=== PATIENT | female | born 1960 | race Caucasian/White ===

== ENCOUNTER 2019-08-17 05:27 | Emergency (ER) | payer MEDICAID ==
[~2019-08-17] VITALS: Ht 165.1 cm; Wt 54.5 kg
[2019-08-17] MEDS ORDERED: ipratropium/albuterol 3ml nebule NEB ONE (06:35)
[2019-08-17] MEDS ORDERED: azithromycin 250mg tablet PO ONE (06:35)
[2019-08-17] MEDS ORDERED: albuterol 2.5 MG/3 ML nebule NEB ONE (06:35)
[2019-08-17] MEDS ORDERED: predniSONE 20 mg tablet PO ONE (06:35)
[2019-08-17 06:47] VITALS: BP 107/71
[2019-08-17] MEDS ORDERED: AZIT250T PO (07:19)
[2019-08-17] MEDS ORDERED: PRED20TA PO (07:19)
[2019-08-17] MEDS ORDERED: ALBU18HF2 INH (07:19)
== END 2019-08-17 07:33 | disposition home or self-care (01) ==
LOC: ER 05:28
DX: J44.1 Chronic obstructive pulmonary disease with (acute) exacerbation (principal); B34.9 Viral infection, unspecified; F17.200 Nicotine dependence, unspecified, uncomplicated; F12.90 Cannabis use, unspecified, uncomplicated; Z88.0 Allergy status to penicillin; Z88.8 Allergy status to other drugs, medicaments and biological substances; Z88.5 Allergy status to narcotic agent
CPT/HCPCS: 71045; 94640; 99283; J7512; 94760

== ENCOUNTER 2019-08-19 07:46 | Emergency (ER) | payer MEDICAID ==
[~2019-08-19] VITALS: Ht 165.1 cm; Wt 54.5 kg
[~2019-08-19 07:46] MED LIST: ALBU18HF2 INH; AZIT250T PO; PRED20TA PO
[2019-08-19 07:56] VITALS: BP 136/64
[2019-08-19] MEDS ORDERED: ipratropium/albuterol 3ml nebule NEB ONE (08:20)
== END 2019-08-19 08:45 | disposition left against medical advice (07) ==
LOC: ER 07:47
DX: J06.9 Acute upper respiratory infection, unspecified (principal); B34.9 Viral infection, unspecified; J44.9 Chronic obstructive pulmonary disease, unspecified; F17.200 Nicotine dependence, unspecified, uncomplicated; F10.99 Alcohol use, unspecified with unspecified alcohol-induced disorder; F12.90 Cannabis use, unspecified, uncomplicated; Z88.0 Allergy status to penicillin; Z88.8 Allergy status to other drugs, medicaments and biological substances; Z88.5 Allergy status to narcotic agent; Z79.899 Other long term (current) drug therapy; Y90.9 Presence of alcohol in blood, level not specified
CPT/HCPCS: 93005; 99283